=== PATIENT | female | born 1995 | race Caucasian/White ===

== ENCOUNTER 2016-10-28 15:47 | Emergency (ER) | payer SELFPAY ==
[2016-10-28] MEDS ORDERED: TRIAMCINOLONE ACETONIDE INJ 40 MG/ML VIAL IM ONE (17:01)
--- NOTE | 2016-10-28 17:43 | ED.PDOC ---
History of Present Illness - General Chief Complaint: Allergic Reaction Time Seen by Provider: 10/28/16 17:00 Source: patient Exam Limitations: no limitations Additional Information: PT USED NEW BODY SOAP, DEVELOPED AN ALLERGIC REACTION. WAS SEEN IN [facility]. GIVEN PO STEROIDS. RASH HAS COME BACK AND GOTTEN WORSE. - History of Present Illness Timing/Duration: other - 2 DAYS Severity: moderate Improving Factors: nothing Worsening Factors: nothing Associated Symptoms: denies symptoms Allergies/Adverse Reactions: Allergies Sulfa Antibiotics Allergy (Verified 04/21/15 16:15) Home Medications: Ambulatory Orders Vit W/ Ferrous Fumara [] 1 tab PO DAILY 04/21/15 Methylprednisolone [Medrol Dose Segre] 4 mg PO DAILY #1 tab 10/28/16 Review of Systems - Review of Systems Constitutional: Denies: chills, fever EENTM: Denies: throat swelling, mouth swelling Respiratory: Denies: cough, short of breath, wheezing Cardiology: Denies: chest pain, palpitations Gastrointestinal/Abdominal: Denies: abdominal pain, nausea, vomiting Skin: States: rash Past Medical History (General) - Patient Medical History Hx Diabetes: No Hx Renal Disease: No - Social History Hx Substance Use: No - Female History Expected Date of Delivery:: 05/11/15 Family Medical History - Family History Mother Name: Irene Age (years): 52 Living Status: Still Living Hx Family Asthma: Yes Hx Family;Other: Emphysema, high cholesterol Brother Name: Ramirez Age (years): 13 Living Status: Still Living Hx Family;Other: born w/holes x 3 in his heart, closed on their own Physical Exam - Physical Exam General Appearance: Alert, Comfortable, No apparent distress, Obese Eye Exam: bilateral normal Ears, Nose, Throat: normal ENT inspection, normal pharynx Neck: full range of motion, supple, normal inspection Respiratory: lungs clear, normal breath sounds, no respiratory distress Cardiovascular/Chest: regular rate, rhythm, no murmur Extremity: normal range of motion, normal inspection Neurologic: no motor/sensory deficits, alert, normal mood/affect Skin Exam: rash - URTICARIAL RASH DIFFUSELY OVER ARMS, LEGS, TRUNK. Departure - Departure Clinical Impression: Allergic urticaria Time of Disposition: 17:47 Disposition: Discharge to Home or Self Care Condition: Good Departure Forms: ED Discharge - Pt. Copy, Patient Portal Self Enrollment Instructions: DI for General Allergic Reactions Prescriptions: Methylprednisolone [Medrol Dose Serge] 4 mg PO DAILY #1 tab Home Medications: Ambulatory Orders Vit W/ Ferrous Fumara [] 1 tab PO DAILY 04/21/15 Methylprednisolone [Medrol Dose Serge] 4 mg PO DAILY #1 tab 10/28/16 Additional Instructions: TAKE ZANTAC OVER THE COUNTER 150MG TWICE DAILY FOR 7 DAYS.
[2016-10-28 19:37] VITALS: O2SAT 99
[2016-10-30 13:35] VITALS: BP 114/61; TEMP 98.7
== END 2016-10-28 18:00 | disposition home or self-care (01) ==
LOC: ER 15:47
DX: L50.0 Allergic urticaria (principal); Z88.2 Allergy status to sulfonamides